=== PATIENT | female | born 1940 | race African-American/Black ===

== ENCOUNTER → 2016-09-30 | Outpatient (CLI) | payer OTHER ==
[2015-12-19 14:45] VITALS: BP 206/88
[~2016-09-30] MED LIST: ACET325T9 PO; AMOX1TAB61 PO; ASPI-630 PO; CALC-98 PO; HYDR-971 PO; LISI-338 PO; METF750T2 PO; METO100T11 PO; PRAV40TA2 PO
--- NOTE | 2016-10-05 21:07 | EEG ---
DATE OF SERVICE: 09/30/2016 EEG NUMBER: [id number]. OBJECTIVE: This is a 76-year-old female patient with history of memory loss and confusional episodes. EEG was requested to evaluate cerebral activity. METHODS: Twenty electrodes were applied according to the international 10-20 electrode placement system. EKG monitoring, hyperventilation, intermittent photic stimulation, monopolar and bipolar montages are routinely utilized. The record was obtained on a digital system with video monitoring. FINDINGS: 1. Background: The patient was recorded in the awake and drowsy states. No sleep state was recorded. The overall background amplitude is 5-10 microvolts. A posterior dominant rhythm of 8-9 Hz is observed. 2. Abnormalities: No specific epileptiform discharge or electrographic seizure is seen. No focal or diffuse slowing. Frequent eye blinking movements noted. 3. Activation: Hyperventilation was performed with good efforts and normal response. Intermittent photic stimulation was performed with photic driving. IMPRESSION: This EEG is within normal limits of the study for the awake and drowsy states. No sleep state was recorded. No focal, lateralizing, specific epileptiform discharge or electrographic seizure is seen. AKIL YOON MD DR: ANI/redd JOB#: [id number] / [id number]
== END | disposition home or self-care (01) ==
LOC: RT 11:00
PROVIDERS: ATTEND Psychiatry & Neurology Neurology
DX: R41.3 Other amnesia (principal); I10 Essential (primary) hypertension
CPT/HCPCS: 95816

== ENCOUNTER 2017-02-10 21:45 | Emergency (ER) | payer OTHER ==
[~2017-02-10 21:45] MED LIST changes: +METO-247 PO; -METO100T11 PO
[2017-02-10 22:09] VITALS: BP 148/71
[2017-02-10 22:54] LABS: BILIRUBIN,URINE NEGATIVE (NEG); GLUCOSE,URINE NEGATIVE (NEG); NITRITE,URINE NEGATIVE (NEG); PH,URINE 5.5; PROTEIN,URINE NEGATIVE (NEG-TRACE); UROBILINOGEN,URINE 0.2 mg/dL (0.2 mg/dL)
[2017-02-10 23:02] LABS: BACTERIA,URINE FEW /HPF (0-FEW); SQUAMOUS EPITHELIAL CELL,UR MOD /LPF
[2017-02-10 23:06] LABS: BASO % 1 % (0-3); EOS % 1 % (0-3); HEMATOCRIT 36.3 % (36.0-47.0); HEMOGLOBIN 11.9 g/dL (12.0-15.5); LYMPH # 1.9 x10^3/uL (1.0-4.8); LYMPH % 32 % (24-48); MEAN CORPUSCULAR HEMOGLOBIN 28 pg (25-35); MEAN CORPUSCULAR HGB CONC 33 g/dL (31-37); MEAN CORPUSCULAR VOLUME 86 fL (79-100); MONO % 14 % (0-9); NEUT % 53 % (31-73); PLATELET COUNT 321 x10^3/uL (140-400); RED CELL DISTRIBUTION WIDTH 14.8 % (11.5-14.5); WHITE BLOOD COUNT 5.9 x10^3/uL (4.0-11.0)
[2017-02-10 23:22] LABS: CALCIUM 10.5 mg/dL (8.5-10.1); CREATININE 0.9 mg/dL (0.6-1.0); GFR 73.9; POTASSIUM 3.1 mmol/L (3.5-5.1)
[2017-02-10 23:28] LABS: ALBUMIN 3.8 g/dL (3.4-5.0); ALBUMIN/GLOBULIN RATIO 0.8 (1.0-1.7); TOTAL BILIRUBIN 0.4 mg/dL (0.2-1.0); TOTAL PROTEIN 8.5 g/dL (6.4-8.2)
--- NOTE | 2017-02-11 05:04 | PHYS DOC ---
Past Medical History Past Medical History: Cancer, Diabetes-Type II, Hypertension, Other Additional Past Medical Histor: vertigo Past Surgical History: Cancer Surgery, Hysterectomy, Other Additional Past Surgical Histo: r mastectomy Alcohol Use: Rarely Drug Use: None Adult General Chief Complaint Chief Complaint: NEURO SYMPTOMS/DEFICITS HPI HPI Patient is a 77 year old AA female from sleep screaming 1 hour prior to ED arrival. Patient does not recall the cause of her episode that symptoms have since resolved. Denies new medications or history of psychosis. Eyes other symptoms or complaints. Patient does have history of dementia.[] Review of Systems Review of Systems ROS as per HPI. All other systems were reviewed and found to be within normal limits, except as documented in this note. Allergies Allergies Allergies Coded Allergies Type Severity Reaction Last Updated Verified No Known Drug Allergies 08/25/13 No Physical Exam Physical Exam Constitutional: Well developed, well nourished, no acute distress, non-toxic appearance. [] HENT: Normocephalic, atraumatic, bilateral external ears normal, oropharynx moist, no oral exudates, nose normal. [] Eyes: PERRLA, EOMI, conjunctiva normal, no discharge. [] Neck: Normal range of motion, no tenderness, supple, no stridor. [] Cardiovascular:Heart rate regular rhythm, no murmur [] Lungs & Thorax: Bilateral breath sounds clear to auscultation [] Abdomen: Bowel sounds normal, soft, no tenderness. [] Skin: Warm, dr. [] Back: No tenderness. [] Extremities: No tenderness, no cyanosis, no clubbing, ROM intact, no edema. [] Neurologic: Alert and oriented X 3, normal motor function, normal sensory function, no focal deficits noted. [] Psychologic: Affect normal, judgement normal, mood normal. [] Current Patient Data Vital Signs Vital Signs Date Time Temp Pulse Resp B/P (MAP) Pulse Ox O2 Delivery O2 Flow Rate FiO2 02/10/17 22:09 98.5 110 18 148/71 (96) 98 Room Air 98.5 Lab Values Laboratory Tests Test 02/10/17 22:20 02/10/17 22:45 White Blood Count 5.9 x10^3/uL (4.0-11.0) Red Blood Count 4.20 x10^6/uL (3.50-5.40) Hemoglobin 11.9 g/dL (12.0-15.5) L Hematocrit 36.3 % (36.0-47.0) Mean Corpuscular Volume 86 fL (79-100) Mean Corpuscular Hemoglobin 28 pg (25-35) Mean Corpuscular Hemoglobin Concent 33 g/dL (31-37) Red Cell Distribution Width 14.8 % (11.5-14.5) H Platelet Count 321 x10^3/uL (140-400) Neutrophils (%) (Auto) 53 % (31-73) Lymphocytes (%) (Auto) 32 % (24-48) Monocytes (%) (Auto) 14 % (0-9) H Eosinophils (%) (Auto) 1 % (0-3) Basophils (%) (Auto) 1 % (0-3) Neutrophils # (Auto) 3.1 x10^3uL (1.8-7.7) Lymphocytes # (Auto) 1.9 x10^3/uL (1.0-4.8) Monocytes # (Auto) 0.8 x10^3/uL (0.0-1.1) Eosinophils # (Auto) 0.1 x10^3/uL (0.0-0.7) Basophils # (Auto) 0.0 x10^3/uL (0.0-0.2) Sodium Level 140 mmol/L (136-145) Potassium Level 3.1 mmol/L (3.5-5.1) L Chloride Level 101 mmol/L (98-107) Carbon Dioxide Level 30 mmol/L (21-32) Anion Gap 9 (6-14) Blood Urea Nitrogen 17 mg/dL (7-20) Creatinine 0.9 mg/dL (0.6-1.0) Estimated GFR (Cockcroft-Gault) 73.9 BUN/Creatinine Ratio 19 (6-20) Glucose Level 123 mg/dL (70-99) H Calcium Level 10.5 mg/dL (8.5-10.1) H Total Bilirubin 0.4 mg/dL (0.2-1.0) Aspartate Amino Transferase (AST) 20 U/L (15-37) Alanine Aminotransferase (ALT) 21 U/L (14-59) Alkaline Phosphatase 85 U/L (46-116) Total Protein 8.5 g/dL (6.4-8.2) H Albumin 3.8 g/dL (3.4-5.0) Albumin/Globulin Ratio 0.8 (1.0-1.7) L Thyroid Stimulating Hormone (TSH) < 0.007 uIU/mL (0.358-3.74) L Urine Collection Type Unknown Urine Color Yellow Urine Clarity Cloudy Urine pH 5.5 Urine Specific [place] 1.025 Urine Protein Negative mg/dL (NEG-TRACE) Urine Glucose (UA) Negative mg/dL (NEG) Urine Ketones (Stick) Trace mg/dL (NEG) Urine Blood Negative (NEG) Urine Nitrite Negative (NEG) Urine Bilirubin Negative (NEG) Urine Urobilinogen Dipstick 0.2 mg/dL (0.2 mg/dL) Urine Leukocyte Esterase Trace (NEG) Urine RBC 3-5 /HPF (0-2) Urine WBC 1-4 /HPF (0-4) Urine Squamous Epithelial Cells Mod /LPF Urine Bacteria Few /HPF (0-FEW) Urine Hyaline Casts Many /HPF Urine Mucus Marked /LPF Laboratory Tests 02/10/17 22:20 Laboratory Tests 02/10/17 22:20 EKG EKG [] Radiology/Procedures Radiology/Procedures [] Course & Med Decision Making Course & Med Decision Making Pertinent Labs and Imaging studies reviewed. (See chart for details) [No symptoms in the ED. Labs reviewed. PCP follow-up for Review and further evaluation. Return precautions reviewed.] Dragon Disclaimer Dragon Disclaimer This electronic medical record was generated, in whole or in part, using a voice recognition dictation system. Departure Departure Impression: Primary Impression: Hyperthyroidism Additional Impression: Anxiety state Disposition: 01 HOME, SELF-CARE Condition: GOOD Patient Instructions: Anxiety and Panic Attacks, Xclp-rl-Mmkg, Hypertension, Ssur-ch-Cgyl Additional Instructions: Please go home and rest. Please follow-up with your primary care physician for review of lab studies and tests.. Problem Qualifiers PETE KAUR DO Feb 11, 2017 05:04
[2017-02-11 14:25] LABS: THYROXINE 8.6 ug/dL (4.5-12.0)
== END 2017-02-11 01:07 | disposition home or self-care (01) ==
LOC: ER 21:45
DX: E05.90 Thyrotoxicosis, unspecified without thyrotoxic crisis or storm (principal); F41.1 Generalized anxiety disorder; I10 Essential (primary) hypertension; E11.9 Type 2 diabetes mellitus without complications; F03.90 Unspecified dementia, unspecified severity, without behavioral disturbance, psychotic disturbance, mood disturbance, and anxiety; Z90.710 Acquired absence of both cervix and uterus; Z90.11 Acquired absence of right breast and nipple
CPT/HCPCS: 36415; 80053; 81001; 84436; 84443; 84480; 85025; 87086; 99284

== ENCOUNTER → 2017-07-14 | Outpatient (CLI) | payer MEDICARE, OTHER | END | disposition home or self-care (01) | LOC: KCIC MRI 09:38 | DX: G31.89 Other specified degenerative diseases of nervous system (principal) | CPT/HCPCS: 70450 ==

== ENCOUNTER → 2019-09-01 | Outpatient (CLI) | payer MEDICARE ==
[~2019-09-01] MED LIST changes: +HYDR-3164 PO; -HYDR-971 PO; -METF750T2 PO; +METF750T39 PO
--- NOTE | 2019-09-01 12:16 | CARD ---
MR#: [id number] Date of Study: 09/01/2019 Ordering Physician: RICARDO POOL, Referring Physician: RICARDO POOL, Tech: Raine Donato APPROVED REPORT EXAM: Two-dimensional and M-mode echocardiogram with Doppler and color Doppler. Other Information Quality : AverageHR: 90bpm INDICATION Cardiomyopathy RISK FACTORS Hypertension Hyperlipidemia Diabetes 2D DIMENSIONS Left Atrium(2D)3.5 (1.6-4.0cm)IVSd1.0 (0.7-1.1cm) Aortic Root(2D)2.5 (2.0-3.7cm)LVDd5.9 (3.9-5.9cm) LVOT Diameter1.9 (1.8-2.4cm)PWd1.1 (0.7-1.1cm) LVDs5.1 (2.5-4.0cm)FS (%) 12.5 % SV45.1 mlLVEF(%)26.5 (>50%) Aortic Valve AoV Peak Frank.91.9cm/sAoV VTI16.0cm AO Peak GR.3.4mmHgLVOT Peak Frank.59.2cm/s LVOT VTI 9.35cmAO Mean GR.2mmHg JC (VMAX)1.95bg3CAB (VTI)1.72cm2 Mitral Valve MV E Gjxwarbl53.4cm/sMV E Peak Gr.72mmHg MV DECEL CBUD508ogJL A Xzwwyevg87.4cm/s MV E Mean Gr.2mmHgMV PJY13vd E/A Ratio1.3MVA (PHT)4.71cm2 TDI E/Lateral E'17.4E/Medial E'26.3 Pulmonary Valve PV Peak Syqgqqll75.8cm/sPV Peak Grad.2mmHg Tricuspid Valve TR P. Gthvwzte048fc/sRAP OLWFMIXL3bcUp TR Peak Gr.87ezXnASAA57jyIv LEFT VENTRICLE The Left Ventricle is mildly to moderately dilated. There is borderline to mild concentric left ventr icular hypertrophy. The left ventricular systolic function is moderately impaired. The ejection fract ion is 30%. Transmitral Doppler flow pattern is Grade II-pseudonormal filling dynamics. RIGHT VENTRICLE The right ventricle is normal size. There is normal right ventricular wall thickness. The right ventr icular systolic function is normal. ATRIA The left atrium is mildly dilated. The right atrium size is normal. The interatrial septum is intact with no evidence for an atrial septal defect or patent foramen ovale as noted on 2-D or Doppler imagi ng. AORTIC VALVE The aortic valve is thickened but opens well. Doppler and Color Flow revealed trace aortic regurgitat ion. There is no significant aortic valvular stenosis. MITRAL VALVE The mitral valve is normal in structure and function. There is no evidence of mitral valve prolapse. There is no mitral valve stenosis. Doppler and Color-flow revealed mild mitral regurgitation. TRICUSPID VALVE The tricuspid valve is normal in structure and function. Doppler and Color Flow revealed trace tricus pid regurgitation with an estimated PAP of 43 mmHg. There is no tricuspid valve stenosis. PULMONIC VALVE The pulmonic valve is not well visualized. Doppler and Color Flow revealed trace to mild pulmonic hunter vular regurgitation. GREAT VESSELS The aortic root is normal in size. The IVC is normal in size and collapses >50% with inspiration. PERICARDIAL EFFUSION There is small left pleural effusion. There is no evidence of significant pericardial effusion. Critical Notification Critical Value: No <Conclusion> The left ventricular systolic function is moderately impaired. The ejection fraction is 30%. Mild mitral regurgitation. Trace tricuspid regurgitation with an estimated PAP of 43 mmHg. There is no evidence of significant pericardial effusion. Signed by : Ricardo Pool, Electronically Approved : 09/01/2019 12:15:47
== END ==
LOC: ECHO 10:43
PROVIDERS: ATTEND Internal Medicine Cardiovascular Disease
DX: I08.8 Other rheumatic multiple valve diseases (principal); J90 Pleural effusion, not elsewhere classified; I42.9 Cardiomyopathy, unspecified
CPT/HCPCS: 93306

== ENCOUNTER → 2019-09-26 | Outpatient (CLI) | payer MEDICARE | END | disposition home or self-care (01) | LOC: LAB 13:23 | PROVIDERS: ATTEND Internal Medicine Cardiovascular Disease | DX: Z01.818 Encounter for other preprocedural examination (principal); Z11.59 Encounter for screening for other viral diseases | CPT/HCPCS: U0003-CS ==

== ENCOUNTER 2019-09-29 10:37 | Inpatient (IN) | payer MEDICARE ==
[~2019-09-29] VITALS: Ht 165.1 cm; Wt 76.0 kg
[~2019-09-29 10:37] MED LIST changes: +IV RINGERS,LACTATED 1000ML 1,000 ML IV SCH
[2019-09-29] MEDS ORDERED: LORA10TA55 PO (11:27)
[2019-09-29] MEDS ORDERED: VITAMIN D PO (11:27)
[2019-09-29] MEDS ORDERED: POTA8CAP19 PO (11:27)
[2019-09-29] MEDS ORDERED: FURO40TA4 PO (11:27)
[2019-09-29] MEDS ORDERED: MELO7.5T29 PO (11:27)
[2019-09-29] MEDS ORDERED: CARV6.2511 PO (11:27)
[2019-09-29] MEDS ORDERED: DONE10TA7 PO (11:27)
--- NOTE | 2019-09-29 11:29 | EKG ---
[facility] [address] [place] [address] Test Date: 2019-09-29 Test Time: 11:18:14 Pat Name: WILLIAN ASTUDILLO Department: Room: Gender: F Information Specialist: : 1940 Requested By: RICARDO POOL Order Number: [id number] Reading MD: Ricardo Pool Measurements Intervals [place] Rate: 71 P: 127 MN: 160 QRS: 192 QRSD: 88 T: 92 QT: 412 QTc: 453 Interpretive Statements SINUS RHYTHM QRS(T) CONTOUR ABNORMALITY CONSIDER ANTEROSEPTAL MYOCARDIAL DAMAGE CONSISTENT WITH HIGH LATERAL INFARCT AGE UNDETERMINED T ABNORMALITY IN LATERAL LEADS ABNORMAL ECG Electronically Signed On 09-29-2019 16:37:06 CDT by Ricardo Pool
[2019-09-29] MEDS ORDERED: ceFAZolin SODIUM IV Push 1 GM VIAL. IVP ONE ×3 (11:30→18:30)
[2019-09-29 11:39] LABS: CALCIUM 9.2 mg/dL (8.5-10.1); GFR 65.1
[2019-09-29] MEDS ORDERED: LIDOCAINE 2%/EPI 1:100,000 20 ML VIAL. ONE (11:43)
[2019-09-29 11:49] LABS: HEMATOCRIT 33.4 % (36.0-47.0); RED BLOOD COUNT 4.17 x10^6/uL (3.50-5.40); RED CELL DISTRIBUTION WIDTH 21.6 % (11.5-14.5); WHITE BLOOD COUNT 4.4 x10^3/uL (4.0-11.0)
[2019-09-29 11:50] VITALS: BP 104/59
[2019-09-29] MEDS ORDERED: BACITRACIN 50,000 UNIT in IV NORMAL SALINE 250ML 250 ML IRR ONE (12:00)
[2019-09-29 12:02] LABS: PROTHROMBIN TIME PATIENT 14.8 SEC (11.7-14.0)
[2019-09-29] MEDS ORDERED: fentaNYL PF VIAL 250 MCG/5 ML VIAL ONE (12:16)
[2019-09-29] MEDS ORDERED: MIDAZOLAM HCL/PF 2 MG/2 ML VIAL. ONE (12:16)
[2019-09-29] MEDS ORDERED: LIDOCAINE 2%/EPI 1:100,000 20 ML VIAL. IJ ONE (12:45)
[2019-09-29 13:26] VITALS: BP 92/53
--- NOTE | 2019-09-29 13:41 | CARD ---
MR#: [id number] Date of Study: 09/29/2019 Ordering Physician: ELIAZAR POOL, Referring Physician: ELIAZAR POOL, Tech: APPROVED REPORT EXAM Successful implantation of Biotronik automated implantable cardioverter-defibrillator. Defibrillation threshold measurement at the time of implantation. FL TIME: 1.5 MINS DOSE: 1.7 GYCM2 INDICATIONS Primary prevention of sudden cardiac in a patient with chronic systolic heart failure, nonische myla cardiomyopathy with LVEF 30%. PROCEDURE After explaining the risks, benefits, and alternative options, informed consent was obtained from the patient. The patient was brought to the cardiac catheterization lab and the left chest and shoulder were prepp ed and draped in the usual fashion. 30 cc of 2% lidocaine was infiltrated into the skin and subcutaneous tissues for local anesthesia. A n incision was made over the left infraclavicular fossa and using blunt dissection and cautery of poc ket was created. Venous access was obtained in the left subclavian vein and 9 Yi sheath was inse rted. A Biotronik bipolar active fixation lead, model Plexa ProMRI S DX serial #[id number] was advanced under fluoroscopic guidance and the tip was positioned in the right ventricular apex with the atrial sensi ng poles appropriately positioned in mid right atrium. The lead was secured into place and was attac hed to a Biotronik AICD generator, model Acticor 7 VR-T DX, serial #[id number]. This was placed in the pocket that was subsequently closed in 3 layers. Hemostasis was secured. Ventricular fibrillation was induced to check the defibrillation threshold. Patient successfully con verted to sinus rhythm with a 25 J shock therapy with shock impedance of 82 ohms. The right ventricu lar lead showed a sensing amplitude of 8 mV and threshold of 0.4 V. Patient tolerated the procedure well. There were no immediate complications. CONCLUSION Successful implantation of Biotronik automated implantable cardioverter defibrillator for primary pre vention of sudden cardiac in a patient with nonischemic cardiomyopathy with defibrillation thre shold measurement at the time of implantation. Signed by : Eliazar Pool, Electronically Approved : 09/29/2019 13:41:16
[2019-09-29] MEDS ORDERED: NO ANTICOAGULANT THERAPY. MC PRN (13:45)
[2019-09-29] MEDS ORDERED: oxyCODONE/APAP 5/325 1 TAB TABLET PO PRN (13:45)
[2019-09-29] MEDS ORDERED: PROPOFOL 10 MG/ML (20ML) VIAL. IV ONE (13:58)
--- NOTE | 2019-09-29 14:21 | RAD ---
PORTABLE CHEST 1V Clinical indications: Reason: POST OP. ICD placement / COMPARISON: December 19, 2015. Findings: A unipolar right ventricular pacemaker device has been placed via left subclavian approach. No acute lung infiltrate or pleural effusion or pulmonary edema or lung mass or pneumothorax is seen. The heart size, pulmonary vasculature, mediastinum and both jasmin are otherwise stable. Impression: No acute radiographic abnormality is seen. Electronically signed by: Dc Jones MD (09/29/2019 2:18 PM) [id number]
[2019-09-29 15:00] VITALS: BP 103/67
[2019-09-29] MEDS: CARVEDILOL 6.25 MG TABLET. PO SCH (18:23)
[2019-09-29 19:45] VITALS: BP 137/51
[2019-09-29] MEDS ORDERED: ATORVASTATIN CALCIUM 10 MG TABLET. PO SCH (21:00)
[2019-09-29 23:10] VITALS: BP 155/64
[2019-09-30 03:45] VITALS: BP 159/74
[2019-09-30 07:00] VITALS: BP 161/73
[2019-09-30] MEDS ORDERED: POTASSIUM CHLORIDE 10 MEQ TABLET.ER. PO SCH (08:00)
[2019-09-30] MEDS: metFORMIN 500 MG TABLET PO SCH ×2 (08:00→12:00)
--- NOTE | 2019-09-30 08:34 | RAD ---
Chest, PA and Lateral: Technique: PA and lateral views of the chest were obtained. History: Post pacemaker placement. Comparison: 09/29/2019. Findings: Mild cardiomegaly. Left-sided cardiac pacer AICD is unchanged. The lungs are clear. IMPRESSION: No acute cardiac pulmonary findings. Electronically signed by: Michele Thompson MD (09/30/2019 8:31 AM) [id number]
[2019-09-30] MEDS: CARVEDILOL 6.25 MG TABLET. PO SCH (08:36)
[2019-09-30] MEDS ORDERED: ASPIRIN CHEWABLE 81 MG TABLET. PO SCH (09:00)
[2019-09-30] MEDS ORDERED: DONEPEZIL HCL 10 MG TABLET. PO SCH (09:00)
[2019-09-30] MEDS ORDERED: FUROSEMIDE 40 MG TABLET. PO SCH (09:00)
[2019-09-30 11:00] VITALS: BP 155/63
--- NOTE | 2019-09-30 11:29 | PDOC3 ---
Discharge Summary Visit Information Date of Admission: Sep 29, 2019 Date of Discharge: Sep 30, 2019 Admitting Diagnosis: Cardiomyopathy Final Diagnosis Cardiomyopathy. Brief Hospital Course Allergies Allergies Coded Allergies Type Severity Reaction Last Updated Verified No Known Drug Allergies 08/25/13 No Vital Signs Vital Signs Date Time Temp Pulse Resp B/P (MAP) Pulse Ox O2 Delivery O2 Flow Rate FiO2 09/30/19 08:36 121 161/78 09/30/19 08:00 Room Air 09/30/19 07:00 98.4 16 97 98.4 09/29/19 14:10 2 Lab Results Laboratory Tests Test 09/29/19 11:24 09/29/19 16:57 09/29/19 20:47 09/30/19 07:37 White Blood Count 4.4 x10^3/uL (4.0-11.0) Red Blood Count 4.17 x10^6/uL (3.50-5.40) Hemoglobin 11.0 g/dL (12.0-15.5) Hematocrit 33.4 % (36.0-47.0) Mean Corpuscular Volume 80 fL (79-100) Mean Corpuscular Hemoglobin 26 pg (25-35) Mean Corpuscular Hemoglobin Concent 33 g/dL (31-37) Red Cell Distribution Width 21.6 % (11.5-14.5) Platelet Count 256 x10^3/uL (140-400) Prothrombin Time 14.8 SEC (11.7-14.0) Prothromb Time International Ratio 1.2 (0.8-1.1) Sodium Level 146 mmol/L (136-145) Potassium Level 4.0 mmol/L (3.5-5.1) Chloride Level 110 mmol/L (98-107) Carbon Dioxide Level 29 mmol/L (21-32) Anion Gap 7 (6-14) Blood Urea Nitrogen 21 mg/dL (7-20) Creatinine 1.0 mg/dL (0.6-1.0) Estimated GFR (Cockcroft-Gault) 65.1 Glucose Level 112 mg/dL (70-99) Calcium Level 9.2 mg/dL (8.5-10.1) Glucose (Fingerstick) 99 mg/dL (70-99) 160 mg/dL (70-99) 111 mg/dL (70-99) Laboratory Tests Test 09/29/19 16:57 09/29/19 20:47 09/30/19 07:37 Glucose (Fingerstick) 99 mg/dL (70-99) 160 mg/dL (70-99) 111 mg/dL (70-99) Brief Hospital Course The patient is a 79-year-old female with a history of a cardiomyopathy with an ejection fraction of 30%. Patient was admitted for a scheduled ICD implant which was performed without complications. Postop chest x-ray showed no abnormalities including no pneumothorax. Patient was monitored overnight. Interrogation of the device the following morning showed normal functioning. Repeat a.m. chest x-ray showed no pneumothorax. On exam the patient was comfortable. We will increase the patient's activity and will discharge her later today on present medications. We will arrange follow-up in the office for a wound check in approximately 2 weeks. Assessment Assessment 1. Successful implantation of an AICD without complications. Discharge Information Condition at Discharge: Stable Follow Up: Weeks Disposition/Orders: D/C to Home Scheduled Aspirin (Aspirin) 81 Mg Tab.chew, 81 MG PO DAILY, (Reported) Entered as Reported by: ALEX TEIXEIRA on 08/25/13 0746 Last Action: Continued on 09/29/19 1335 by RICARDO ENCISO Carvedilol (Carvedilol ) 6.25 Mg Tablet, 6.25 MG PO BIDWMEALS for CARDIAC, (Reported) Entered as Reported by: ANAT WHITNEY on 09/29/19 1127 Last Taken: Unknown Dose on 09/29/19 Last Action: Continued on 09/29/19 1335 by RICARDO ENCISO Donepezil Hcl (Donepezil Hcl) 10 Mg Tablet, 1 TAB PO DAILY for rx, #90 Ref 1 (Reported) Entered as Reported by: ANAT WHITNEY on 09/29/19 1127 Last Taken: Unknown Dose on 09/29/19 Last Action: Continued on 09/29/19 1335 by RICARDO ENCISO Furosemide (Furosemide) 40 Mg Tablet, 1 TAB PO DAILY for rx, #30 Ref 5 (Rep orted) Entered as Reported by: ANAT WHITNEY on 09/29/19 1127 Last Taken: Unknown Dose on 09/28/19 Last Action: Continued on 09/29/19 1335 by RICARDO ENCISO Loratadine (Loratadine) 10 Mg Tab.rapdis, 1 TAB PO DAILY for allergy symptoms for 30 Days, #30 Ref 0 (Reported) Entered as Reported by: ANAT WHITNEY on 09/29/191126 Last Taken: Unknown Dose on 09/29/19 Last Action: New Order on 09/29/191126 by ANAT WHITNEY Metformin Hcl (Metformin Hcl Er) 750 Mg Tab.er.24h, 750 MG PO DAILY for rx, Ref 0 (Reported) Entered as Reported by: ALEX TEIXEIRA on 08/25/13745 Last Action: Converted on 09/29/191334 by RICARDO ENCISO Potassium Chloride (Potassium Chloride) 8 Meq Capsule.er, 1 CAP PO DAILY for rx for 30 Days, #30 Ref 0 (Reported) Entered as Reported by: ANAT WHITNEY on 09/29/191126 Last Taken: Unknown Dose on 09/28/19 Last Action: Converted on 09/29/191334 by RICARDO ENCISO Pravastatin Sodium (Pravastatin Sodium) 40 Mg Tablet, 40 MG PO HS, (Reported) Entered as Reported by: ALEX TEIXERIA on 08/25/13745 Last Action: Converted on 09/29/191334 by RICARDO ENCISO [vitamin D2 50,000] , 1 CAP PO WEEKLY, (Reported) Entered as Reported by: ANAT WHITNEY on 09/29/191126 Last Action: New Order on 09/29/191126 by ANAT WHITNEY Scheduled PRN Meloxicam (Meloxicam) 7.5 Mg Tablet, 1 TAB PO DAILY PRN for PAIN for 30 Days, #30 Ref 0 (Reported) Entered as Reported by: ANAT WHITNEY on 09/29/191126 Last Action: New Order on 09/29/191126 by ANAT WHITNEY Patient Instructions Patient Instructions Routine post AICD instructions. We will call to arrange follow-up and wound check. Justicifation of Admission Dx: Justifications for Admission: Justification of Admission Dx: Yes ASAD BORJA MD Sep 30, 2019 11:29
--- NOTE | 2019-09-30 14:52 | NUR ---
Discharge Note: REEMA ASTUDILLO Discharge instructions and discharge home medications reviewed with Patient and a copy given. All questions have been answered and understanding verbalized. The following instructions and handouts were given: Pacemaker instructions Discontinued lines and drains: IV catheter removed intact. Tele monitor removed. Patient discharged to Home with self care via wheelchair.
== END 2019-09-30 15:30 | disposition home or self-care (01) | DRG 227 ==
LOC: SURG 10:37 → 2 NORTH 10:40
PROVIDERS: ADMIT Internal Medicine Cardiovascular Disease; ATTEND Internal Medicine Cardiovascular Disease
PROC: 0JH608Z Insertion of Defibrillator Generator into Chest Subcutaneous Tissue and Fascia, Open Approach (ICD-10-PCS; principal; 2019-09-29)
PROC: 02HK3KZ Insertion of Defibrillator Lead into Right Ventricle, Percutaneous Approach (ICD-10-PCS; 2019-09-29)
PROC: 02H63KZ Insertion of Defibrillator Lead into Right Atrium, Percutaneous Approach (ICD-10-PCS; 2019-09-29)
PROC: 4B02XTZ Measurement of Cardiac Defibrillator, External Approach (ICD-10-PCS; 2019-09-30)
DX: I42.8 Other cardiomyopathies (principal); I50.22 Chronic systolic (congestive) heart failure; I11.0 Hypertensive heart disease with heart failure; E11.9 Type 2 diabetes mellitus without complications
CPT/HCPCS: 33249; 36415; 71045; 71046; 80048; 82962; 85027; 85610; 93005; 93641; C1721; C1895; J0690; J2250; J2704; J3010; J3490; J7050; G0378; J7030

== ENCOUNTER 2020-01-01 15:50 | Emergency (ER) | payer MEDICARE ==
[~2020-01-01] VITALS: Ht 165.1 cm; Wt 76.4 kg
[~2020-01-01 15:50] MED LIST changes: +CARV6.2511 PO; +DONE10TA7 PO; +FURO40TA4 PO; +INSU100I17 SQ; -IV RINGERS,LACTATED 1000ML 1,000 ML IV SCH; +LORA10TA55 PO; +MELO7.5T29 PO; +POTA8CAP19 PO; +VITAMIN D PO
[2020-01-01 18:03] VITALS: BP 107/73
--- NOTE | 2020-01-01 18:24 | PHYS DOC ---
Past Medical History Past Medical History: Cancer, CHF, Diabetes-Type II, Hypertension, Other Additional Past Medical Histor: vertigo Past Surgical History: Cancer Surgery, Hysterectomy, Pacemaker, Other Additional Past Surgical Histo: r mastectomy Smoking Status: Former Smoker Alcohol Use: Rarely Drug Use: None General Adult EDM: Chief Complaint: COUGH HPI: HPI: Patient is a 79 year old female with past medical history of chf hypertension dm dementia presents with the chief complaint of cough with clear sputum prod uction x 3 weeks. Patient has associated generalized weakness. No associated fever denies SOB. History obtained from caregiver Review of Systems: Review of Systems: limited due to dementia Respiratory: positive cough no shortness of breath. [] Heart Score: Risk Factors: Risk Factors: DM, Current or recent (<one month) smoker, HTN, HLP, family history of CAD, obesity. Risk Scores: Score 0 - 3: 2.5% MACE over next 6 weeks - Discharge Home Score 4 - 6: 20.3% MACE over next 6 weeks - Admit for Clinical Observation Score 7 - 10: 72.7% MACE over next 6 weeks - Early Invasive Strategies Allergies: Allergies: Allergies Coded Allergies Type Severity Reaction Last Updated Verified No Known Drug Allergies 12/25/19 No Physical Exam: PE: Constitutional: Well developed, well nourished, no acute distress, non-toxic appearance. [] HENT: Normocephalic, atraumatic, bilateral external ears normal, oropharynx moist, no oral exudates, nose normal. [] Eyes: PERRLA, EOMI, conjunctiva normal, no discharge. [] Neck: Normal range of motion, no tenderness, supple, no stridor. [] Cardiovascular:Heart rate regular rhythm, no murmur [] Lungs & Thorax: decreased bs bilateral no rales rhonic crackles Abdomen: Bowel sounds normal, soft, no tenderness, no masses, no pulsatile masses. [] Skin: Warm, dry, no erythema, no rash. [] Back: No tenderness, no CVA tenderness. [] Extremities: No tenderness, no cyanosis, no clubbing, ROM intact, no edema. [] Neurologic: Alert - dementia , normal motor function, normal sensory function, no focal deficits noted. [] Psychologic: Affect normal, judgement normal, mood normal. [] Current Patient Data: Vital Signs: Vital Signs Date Time Temp Pulse Resp B/P (MAP) Pulse Ox O2 Delivery O2 Flow Rate FiO2 01/01/20 18:03 97.3 84 20 107/73 (84) 100 Room Air 97.3 EKG: EKG: [] Radiology/Procedures: Radiology/Procedures: [] Impression: IMPRESSION: * Blunting of the right greater than left costophrenic angle which could be secondary to small pleural effusion. There is also repeat demonstration of hazy opacity at the right lung base which could be from atelectasis or infiltrate. Course & Med Decision Making: Course & Med Decision Making Pertinent Labs and Imaging studies reviewed. (See chart for details) [] Dragon Disclaimer: Dragon Disclaimer: This electronic medical record was generated, in whole or in part, using a voice recognition dictation system. Departure Departure Impression: Primary Impression: Bronchitis Disposition: 01 DC HOME SELF CARE/HOMELESS Condition: STABLE Referrals: JAMES ALBA MD (PCP) Patient Instructions: Bronchitis Scripts Guaifenesin/Codeine Phosphate (Codeine-Guaifen 10-100 mg/5 ml) 120 Ml Liquid 10 ML PO PRN Q6HRS PRN for cough and congestion MDD 20 Milliliter(s) for 6 Days, #120 ML 0 Refills Prov: DYLAN RAI DO 01/01/20 Azithromycin (ZITHROMAX) 250 Mg Tablet 1 PKG PO UD, #6 TAB Prov: DYLAN RAI I DO 01/01/20 DYLAN RAI DO Jan 01, 2020 18:24
--- NOTE | 2020-01-01 18:45 | RAD ---
INDICATION: Reason: COUGH, HX CHF / Spl. Instructions: / History: COMPARISON: December 25, 2019 FINDINGS: 2 view of chest obtained. Cardiac silhouette is similar to prior. AICD is seen. Calcific atherosclerosis. Blunting of the right costophrenic angle with basilar airspace opacity, similar to prior. Blunting of left costophrenic angle is also seen. IMPRESSION: * Blunting of the right greater than left costophrenic angle which could be secondary to small pleural effusion. There is also repeat demonstration of hazy opacity at the right lung base which could be from atelectasis or infiltrate. Electronically signed by: Mario Rivera MD (01/01/2020 6:42 PM) [id number]
[2020-01-01] MEDS ORDERED: GUAI120L35 PO (18:53)
[2020-01-01] MEDS ORDERED: AZIT250T PO (18:53)
== END 2020-01-01 19:06 | disposition home or self-care (01) ==
LOC: ER 15:50
DX: J40 Bronchitis, not specified as acute or chronic (principal); R05 Cough; R53.1 Weakness; I11.0 Hypertensive heart disease with heart failure; I50.9 Heart failure, unspecified; E11.9 Type 2 diabetes mellitus without complications; Z85.9 Personal history of malignant neoplasm, unspecified; Z95.0 Presence of cardiac pacemaker; Z90.710 Acquired absence of both cervix and uterus; Z90.89 Acquired absence of other organs; Z98.890 Other specified postprocedural states; Z87.891 Personal history of nicotine dependence
CPT/HCPCS: 71046; 99283

== ENCOUNTER 2020-01-13 14:25 | Emergency (ER) | payer MEDICARE ==
[~2020-01-13] VITALS: Ht 172.7 cm; Wt 76.8 kg
[~2020-01-13 14:25] MED LIST changes: +AZIT250T PO; +GUAI120L35 PO
--- NOTE | 2020-01-13 15:31 | PHYS DOC ---
Past Medical History Past Medical History: Cancer, CHF, Dementia, Diabetes-Type II, Hypertension, Other Additional Past Medical Histor: vertigo Past Surgical History: Cancer Surgery, Hysterectomy, Pacemaker, Other Additional Past Surgical Histo: r mastectomy Smoking Status: Former Smoker Alcohol Use: Rarely Drug Use: None General Adult EDM: Chief Complaint: LOWER EXTREMITY SWELLING HPI: HPI: Patient is a 79 year old female who presents with her caregiver whom the caregiver states the patient has a history of severe dementia. Patient states that she feels a little shortness of breath, she states that it has been the same for as long as she can remember. The patient's caregiver states that she thought that her lower extremities were swollen however the patient's caregiver states that ever since the patient was discharged from [facility] on 12/27/2019, the patient had her Lasix dose increased to 80 mg twice a day and the patient has up all night long using the restroom and no one in the family including the patient can get any sleep, this is the main reason why she is being seen here today. The patient is unable to care for herself at home and requires constant care related to her severe dementia. Patient's caregiver says that a home health nurse came out once since being discharged and have not seen them since. The patient's caregiver states that the patient's gill box operator Dr. Pool recommended that she start cardiac rehab, however the patient's caregiver states when they took her to cardiac rehab the employees there recommended that she see home health first because she is unable to/not ready for cardiac rehab physically. Patient denies any fever chills, visual changes, nasal congestion, cough, chest pain, swelling of her extremities, abdominal pain, nausea, vomiting, diarrhea, or constipation. Patient denies any urinary problems other than having to urinate quite often since doubling her Lasix dose at home. Patient denies any back pains or pain in her joints. Patient denies any skin rashes, headaches, focal weaknesses or sensory changes. Patient denies any swelling of her glands, any depressions, or anxiety. Patient's caregiver states she is concerned that the patient is unable to care for herself and that she is unable to stay up all night with the patient is a patient cannot sleep related to her having to urinate constantly. Review of Systems: Review of Systems: Constitutional: Denies fever or chills. Eyes: Denies change in visual acuity. HENT: Denies nasal congestion or sore throat. Respiratory: Denies cough, however complains of shortness of breath that has been unchanged for several years. Cardiovascular: Denies chest pain or edema. GI: Denies abdominal pain, nausea, vomiting, bloody stools or diarrhea. : Denies dysuria. Musculoskeletal: Denies back pain or joint pain. Integument: Denies rash. Neurologic: Denies headache, focal weakness or sensory changes. Endocrine: Denies polydipsia. Complains of increased urination since doubling her Lasix dose. Lymphatic: Denies swollen glands. Psychiatric: Denies depression or anxiety. Heart Score: Risk Factors: Risk Factors: DM, Current or recent (<one month) smoker, HTN, HLP, family history of CAD, obesity. Risk Scores: Score 0 - 3: 2.5% MACE over next 6 weeks - Discharge Home Score 4 - 6: 20.3% MACE over next 6 weeks - Admit for Clinical Observation Score 7 - 10: 72.7% MACE over next 6 weeks - Early Invasive Strategies Current Medications: Per patient caregiver patient takes 3 units NovoLog 3 times a day with meals, 81 mg aspirin daily, pravastatin 40 mg at bedtime, loratadine 10 mg tablet daily. 8 mEq potassium chloride capsule daily, carvedilol 6.25 1/2 tablet twice daily, 80 mg p.o. Lasix daily, donepezil 10 mg daily. Allergies: Allergies: Allergies Coded Allergies Type Severity Reaction Last Updated Verified No Known Drug Allergies 12/25/19 No Physical Exam: PE: Constitutional: Well developed, well nourished, no acute distress, non-toxic appearance. HENT: Normocephalic, atraumatic, bilateral external ears normal, oropharynx moist, no oral exudates, nose normal. Eyes: PERRLA, EOMI, conjunctiva normal, no discharge. Neck: Normal range of motion, no tenderness, supple, no stridor. Cardiovascular:Heart rate regular rhythm, no murmur, heart sounds S1-S2 to auscultation. Lungs & Thorax: Bilateral breath sounds clear to auscultation bilateral upper lobes and right middle lobe, bilateral lower lobes diminished without adven titious lung sounds. Abdomen: Bowel sounds normal, soft, no tenderness, no masses, no pulsatile masses. Skin: Warm, dry, no erythema, no rash. Back: No tenderness, no CVA tenderness. Extremities: No tenderness, no cyanosis, no clubbing, ROM intact, no edema. Patient is up to the bathroom with assistance x1. Neurologic: Alert and oriented to self only, patient has history of severe dementia, normal motor function, normal sensory function, no focal deficits noted. Psychologic: Affect normal, judgement normal, mood normal. Current Patient Data: Labs: Laboratory Tests Test 01/13/20 14:45 01/13/20 15:00 White Blood Count 5.0 x10^3/uL Red Blood Count 4.76 x10^6/uL Hemoglobin 11.5 g/dL Hematocrit 38.1 % Mean Corpuscular Volume 80 fL Mean Corpuscular Hemoglobin 24 pg Mean Corpuscular Hemoglobin Concent 30 g/dL Red Cell Distribution Width 19.4 % Platelet Count 229 x10^3/uL Neutrophils (%) (Auto) 58 % Lymphocytes (%) (Auto) 23 % Monocytes (%) (Auto) 16 % Eosinophils (%) (Auto) 2 % Basophils (%) (Auto) 1 % Neutrophils # (Auto) 2.9 x10^3/uL Lymphocytes # (Auto) 1.2 x10^3/uL Monocytes # (Auto) 0.8 x10^3/uL Eosinophils # (Auto) 0.1 x10^3/uL Basophils # (Auto) 0.0 x10^3/uL Sodium Level 145 mmol/L Potassium Level 3.8 mmol/L Chloride Level 107 mmol/L Carbon Dioxide Level 28 mmol/L Anion Gap 10 Blood Urea Nitrogen 30 mg/dL Creatinine 1.3 mg/dL Estimated GFR (Cockcroft-Gault) 48.1 BUN/Creatinine Ratio 23 Glucose Level 82 mg/dL Calcium Level 9.1 mg/dL Magnesium Level 2.3 mg/dL Total Bilirubin 1.1 mg/dL Aspartate Amino Transf (AST/SGOT) 24 U/L Alanine Aminotransferase (ALT/SGPT) 21 U/L Alkaline Phosphatase 95 U/L Troponin I Quantitative < 0.017 ng/mL [id number]-[id number]-Type Natriuretic Peptide 04363 pg/mL Total Protein 7.1 g/dL Albumin 3.4 g/dL Albumin/Globulin Ratio 0.9 Urine Collection Type Void Urine Color Yellow Urine Clarity Clear Urine pH 5.5 Urine Specific [place] 1.010 Urine Protein Negative mg/dL Urine Glucose (UA) Negative mg/dL Urine Ketones (Stick) Negative mg/dL Urine Blood Negative Urine Nitrite Negative Urine Bilirubin Negative Urine Urobilinogen Dipstick 1.0 mg/dL Urine Leukocyte Esterase Negative Urine RBC Rare /HPF Urine WBC Rare /HPF Urine Squamous Epithelial Cells Many /LPF Urine Bacteria Few /HPF Urine Hyaline Casts Occasional /HPF Urine Yeast Present /HPF Current Medications Medications (Trade) Dose Ordered Sig/Kwaku Route PRN Reason Start Time Stop Time Status Last Admin Dose Admin Iohexol (Omnipaque 350 Mg/ml) 75 ml 1X ONCE IV 01/13/20 18:00 01/13/20 18:01 DC 01/13/20 18:23 Info (CONTRAST GIVEN -- Rx MONITORING) 1 each PRN DAILY PRN MC SEE COMMENTS 01/13/20 18:00 01/13/20 20:16 DC Vital Signs: Vital Signs Date Time Temp Pulse Resp B/P (MAP) Pulse Ox O2 Delivery O2 Flow Rate FiO2 01/13/20 14:30 97.8 84 28 130/89 (103) 98 Room Air 97.8 EKG: EKG: EKG performed at 1557 by ED nursing staff showed heart rate 84 bpm QRS 0.084, QTc interval at 0.474, normal sinus rhythm without ectopy, no STEMI noted, no acute coronary syndrome noted, EKG interpreted by ED attending Dr. Cruz. Radiology/Procedures: Radiology/Procedures: PROCEDURE: CHEST PA & LATERAL EXAM: Chest, 2 views. HISTORY: Shortness of air. COMPARISON: 01/01/2020 FINDINGS: 2 views of the chest are obtained. There has been interval increase in a moderate right pleural effusion. There is a stable small left pleural effusion. There is stable right middle and lower lobe infiltrate. The heart is stable in size. There is a cardiac pacemaker defibrillator. There is no pneumothorax. IMPRESSION: 1. Slight interval increase in a moderate right pleural effusion and stable small left pleural effusion. 2. Stable right middle and lower lobe infiltrate. Electronically signed by: Suzette Delgado MD (01/13/2020 4:30 PM) [id number] DICTATED and SIGNED BY: SUZETTE DELGADO MD DATE: 01/13/20 1630 PROCEDURE: CT ANGIOGRAPHY CHEST EXAM: CT Pulmonary Angiogram INDICATION: Reason: SHORTNESS OF BREATH, P.E. VS MASS, omni 350, 75 ml iv / Spl. Instructions: / History: TECHNIQUE: Multi-detector row images were acquired from the thoracic inlet through the upper abdomen with the use of IV contrast. Sagittal and coronal images were acquired from the transaxial data. MIP images of the pulmonary arteries were obtained. All CT scans performed at this facility utilize dose optimization techniques as appropriate to the exam, including the following: Automated exposure control and adjustment of the mA and/or KV according to patient size (this includes techniques or standardized protocols for targeted exams where dose is indication/reason for exam). IV CONTRAST: Administered COMPARISON: Chest x-ray 01/13/2020 at 4:17 PM, abdomen and pelvis CT 12/25/2019. FINDINGS: Some respiratory motion artifact degrades detail PULMONARY ARTERIES: No pulmonary emboli. CARDIOVASCULAR: Moderate cardiomegaly with left chest pacemaker, leads in the right ventricle. Aorta is normal caliber. MEDIASTINUM & SCOT: No adenopathy or masses in the mediastinum but there is hypoattenuation to the thyroid gland, suggesting poor iodine concentration. There is soft tissue fullness of the right hilum measuring 1.4 cm (image 58 of axial series 3) that is suspicious for mild right hilar adenopathy. There are some calcified right hilar lymph nodes also noted. LUNGS: A lobulated medial right upper lobe lung nodule measuring 3.4 cm is present. Lobar atelectasis of the right lower lobe and partial atelectasis of the right middle lobe is present. PLEURAL SPACE: Moderate right pleural effusion and trace left pleural effusion. No pneumothorax. OSSEOUS & SOFT TISSUE: No acute or aggressive appearing osseous lesions. The bones show exaggerated thoracic kyphosis with generalized osteopenia. No acute fracture. Soft tissues show volume loss in the right breast, suggesting previous right segmental mastectomy. ABDOMEN: Included upper abdomen shows reflux of IV contrast into dilated hepatic veins and a small amount of left upper quadrant abdominal ascites. IMPRESSION: 1. No pulmonary emboli. 2. Lobulated medial right upper lobe lung nodule measuring 3.4 cm is suspicious for primary pulmonary malignancy. Recommend correlation with tissue sampling when clinically feasible. 3. Cardiomegaly with moderate right pleural effusion. Electronically signed by: María Diaz MD (01/13/2020 6:58 PM) [facility] [place] DICTATED and SIGNED BY: MARÍA DIAZ MD DATE: 01/13/201857 Course & Med Decision Making: Course & Med Decision Making Pertinent Labs and Imaging studies reviewed. (See chart for details) 79-year-old patient arrived to emergency department with patient caregiver. Patient complained of a little shortness of breath upon arrival, patient's caregiver states that her lower extremities have been swollen ever since she was discharged from the hospital on . Upon physical examination patient was in no acute distress, no shortness of breath noted, lung sounds were clear all lung garcía except for diminished at the bases, there was no adventitious lung sounds appreciated per auscultation. Upon examination of the patient's lower extremities, there was no edema or swelling noted. Bilateral pedal pulses 2+. Patient's caregiver states that her lower extremity swelling and edema somehow miraculously decreased and looks much better than when she left the house today. Patient's caregiver states that since her Lasix dose had increased to 80 mg a day, the patient is up all night urinating and she and/or the patient's other family members are unable to stay awake every night to take her to the bathroom and her becoming exhausted. Patient's caregiver states that they wish for her to be in the hospital so that they can get some rest. Patient's labs were drawn and did not show signs concerning for infectious process. The patient does have a history of a chronic pleural effusion that was drained on her last visit, however a CT was done today and read by radiologist. Upon reexamination of the patient, patient now denies complaints of shortness of breath pain or discomfort, patient remains in no apparent distress just as she did with initial presentation and examination. Patient states that she feels much better and wishes to go home at this time. Consulted and reviewed case with in-house medicine Dr. Pulliam who stated patient does not meet inpatient criteria and recommended patient be discharged home to follow-up with her primary Dr. Herman this coming Wednesday. Reviewed recommendations and findings with patient and patient's caregiver along with recommendation that patient follow-up with Dr. Gómez this Wednesday. Patient's caregiver was amenable to this. Reviewed discharge instructions, return to emergency department concerns, home care instructions, follow-up care instructions, no medications or medication adjustments at this time. Patient's caregiver was amendable and gave verbal understanding of these instructions. Patient continued to be in no apparent distress and complaint free at discharge, patient discharged home without incident. Dragon Disclaimer: Dragon Disclaimer: This electronic medical record was generated, in whole or in part, using a voice recognition dictation system. Departure Departure Impression: Primary Impression: Feared condition not demonstrated Additional Impression: Anxiety about health Disposition: 01 DC HOME SELF CARE/HOMELESS Condition: STABLE Referrals: JAMES HERMAN MD (PCP) Patient Instructions: Anxiety and Panic Attacks Additional Instructions: Follow-up with Dr. Gómez this Wednesday. Express your concerns with home health nurse when they come out to see you. Return to the emergency department for worsening condition and/or other concerns. NERY FRIEDMAN APRN Jan 13, 2020 15:31
[2020-01-13 16:07] LABS: BASO % 1 % (0-3); EOS # 0.1 x10^3/uL (0.0-0.7); EOS % 2 % (0-3); HEMATOCRIT 38.1 % (36.0-47.0); HEMOGLOBIN 11.5 g/dL (12.0-15.5); LYMPH # 1.2 x10^3/uL (1.0-4.8); LYMPH % 23 % (24-48); MEAN CORPUSCULAR HEMOGLOBIN 24 pg (25-35); MEAN CORPUSCULAR HGB CONC 30 g/dL (31-37); MEAN CORPUSCULAR VOLUME 80 fL (79-100); MONO # 0.8 x10^3/uL (0.0-1.1); MONO % 16 % (0-9); NEUT # 2.9 x10^3/uL (1.8-7.7); NEUT % 58 % (31-73); PLATELET COUNT 229 x10^3/uL (140-400); RED BLOOD COUNT 4.76 x10^6/uL (3.50-5.40); RED CELL DISTRIBUTION WIDTH 19.4 % (11.5-14.5)
[2020-01-13 16:08] LABS: BILIRUBIN,URINE NEGATIVE (NEG); CLARITY,URINE CLEAR; COLOR,URINE YELLOW; NITRITE,URINE NEGATIVE (NEG); PH,URINE 5.5 (<5.0-8.0); PROTEIN,URINE NEGATIVE (NEG-TRACE)
[2020-01-13 16:19] LABS: CALCIUM 9.1 mg/dL (8.5-10.1); CREATININE 1.3 mg/dL (0.6-1.0); GFR 48.1; POTASSIUM 3.8 mmol/L (3.5-5.1)
[2020-01-13 16:25] LABS: ALBUMIN 3.4 g/dL (3.4-5.0); ALBUMIN/GLOBULIN RATIO 0.9 (1.0-1.7); MAGNESIUM 2.3 mg/dL (1.8-2.4); TOTAL BILIRUBIN 1.1 mg/dL (0.2-1.0); TOTAL PROTEIN 7.1 g/dL (6.4-8.2)
[2020-01-13 16:31] LABS: BACTERIA,URINE FEW /HPF (0-FEW); HYALINE CASTS, URINE OCCASIONAL /HPF; RBC,URINE RARE /HPF (0-2); YEAST,URINE PRESENT /HPF
[2020-01-13 16:32] LABS: WBC,URINE RARE /HPF (0-4)
--- NOTE | 2020-01-13 16:32 | RAD ---
EXAM: Chest, 2 views. HISTORY: Shortness of air. COMPARISON: 01/01/2020 FINDINGS: 2 views of the chest are obtained. There has been interval increase in a moderate right pleural effusion. There is a stable small left pleural effusion. There is stable right middle and lower lobe infiltrate. The heart is stable in size. There is a cardiac pacemaker defibrillator. There is no pneumothorax. IMPRESSION: 1. Slight interval increase in a moderate right pleural effusion and stable small left pleural effusion. 2. Stable right middle and lower lobe infiltrate. Electronically signed by: Suzette Ro MD (01/13/2020 4:30 PM) [id number]
[2020-01-13] MEDS ORDERED: CONTRAST GIVEN. MC PRN (18:00)
[2020-01-13] MEDS ORDERED: IOHEXOL 350 MG/ML 100 ML VIAL. IV ONE (18:00)
--- NOTE | 2020-01-13 19:00 | RAD ---
EXAM: CT Pulmonary Angiogram INDICATION: Reason: SHORTNESS OF BREATH, P.E. VS MASS, omni 350, 75 ml iv / Spl. Instructions: / History: TECHNIQUE: Multi-detector row images were acquired from the thoracic inlet through the upper abdomen with the use of IV contrast. Sagittal and coronal images were acquired from the transaxial data. MIP images of the pulmonary arteries were obtained. All CT scans performed at this facility utilize dose optimization techniques as appropriate to the exam, including the following: Automated exposure control and adjustment of the mA and/or KV according to patient size (this includes techniques or standardized protocols for targeted exams where dose is indication/reason for exam). IV CONTRAST: Administered COMPARISON: Chest x-ray 01/13/2020 at 4:17 PM, abdomen and pelvis CT 12/25/2019. FINDINGS: Some respiratory motion artifact degrades detail PULMONARY ARTERIES: No pulmonary emboli. CARDIOVASCULAR: Moderate cardiomegaly with left chest pacemaker, leads in the right ventricle. Aorta is normal caliber. MEDIASTINUM & SCOT: No adenopathy or masses in the mediastinum but there is hypoattenuation to the thyroid gland, suggesting poor iodine concentration. There is soft tissue fullness of the right hilum measuring 1.4 cm (image 58 of axial series 3) that is suspicious for mild right hilar adenopathy. There are some calcified right hilar lymph nodes also noted. LUNGS: A lobulated medial right upper lobe lung nodule measuring 3.4 cm is present. Lobar atelectasis of the right lower lobe and partial atelectasis of the right middle lobe is present. PLEURAL SPACE: Moderate right pleural effusion and trace left pleural effusion. No pneumothorax. OSSEOUS & SOFT TISSUE: No acute or aggressive appearing osseous lesions. The bones show exaggerated thoracic kyphosis with generalized osteopenia. No acute fracture. Soft tissues show volume loss in the right breast, suggesting previous right segmental mastectomy. ABDOMEN: Included upper abdomen shows reflux of IV contrast into dilated hepatic veins and a small amount of left upper quadrant abdominal ascites. IMPRESSION: 1. No pulmonary emboli. 2. Lobulated medial right upper lobe lung nodule measuring 3.4 cm is suspicious for primary pulmonary malignancy. Recommend correlation with tissue sampling when clinically feasible. 3. Cardiomegaly with moderate right pleural effusion. Electronically signed by: Trish Diaz MD (01/13/2020 6:58 PM) [facility] [place]
[2020-01-13 19:07] VITALS: BP 115/78
--- NOTE | 2020-01-15 16:59 | EKG ---
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
== END 2020-01-13 20:05 | disposition home or self-care (01) ==
LOC: ER 14:25
DX: F41.9 Anxiety disorder, unspecified (principal); Z71.1 Person with feared health complaint in whom no diagnosis is made; I11.0 Hypertensive heart disease with heart failure; I50.9 Heart failure, unspecified; E11.9 Type 2 diabetes mellitus without complications; F03.90 Unspecified dementia, unspecified severity, without behavioral disturbance, psychotic disturbance, mood disturbance, and anxiety; Z87.891 Personal history of nicotine dependence; Z95.0 Presence of cardiac pacemaker
CPT/HCPCS: 36415; 71046; 71275; 80053; 81001; 83735; 83880; 84484; 85025; 99285; Q9967; 93005